=== PATIENT | female | born 1990 | race Caucasian/White ===

== ENCOUNTER 2020-01-27 12:48 | Day surgery (SDC) | payer OTHER ==
[~2020-01-27] VITALS: Ht 165.1 cm; Wt 52.8 kg
[~2020-01-27 12:48] MED LIST: ACET325 PO; ALBU90OI INH; AMOCLA500 PO; AMOX500 PO; BUPR75; Bactrim Ds Tab1 EACH PO; CEPH500 PO; CETYLOZ PO; CIPR500 PO; CITRANATAL B-C1 EACH PO; CLIN150 PO; CLON.1 PO; CODACE30 PO; CODGUAEL PO; Cleocin HCl150 MG PO; DIAZ5 PO; DOXY100 PO; FERR325 PO; HYDACE5 PO; HYDACE5325 PO; HYDHCL25 PO; HYDPAM50 PO; IBUP600 PO; MEDR150I IM; METO10 PO; MULVITMINE PO; MUPI2TO TOP; NICO21TP; NICORETTE4 MG BC; OXYACE5T PO; PHENA200 PO; PROM25; PROM25 PO; Pepcid20 MG PO; RANI150 PO; RXCODGUASY PO; RXHYD5325 PO; RXHYDACE PO; RXONDA4ODT MM; RXOXYACE PO; RXPROM25 PO; SULTRIDS PO; Vibramycin100 MG PO; Vistaril25 MG PO; [UNRECOGNIZED DRUG - OTHER]
[2020-01-27] MEDS ORDERED: PRENATAL TABLE1 EAC2 PO (13:47)
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
--- NOTE | 2020-01-27 15:41 | NUR ---
01/27/20 1541 Lauryn Prieto DC'D IN OR AT END OF CASE
== END 2020-01-27 17:19 | disposition home or self-care (01) ==
LOC: ORSCSDS 12:48
PROVIDERS: Obstetrics & Gynecology
PROC: 0UB14ZZ Excision of Left Ovary, Percutaneous Endoscopic Approach (ICD-10-PCS; principal; 2020-01-27 14:15)
DX: N83.202 Unspecified ovarian cyst, left side (principal); Z87.891 Personal history of nicotine dependence
CPT/HCPCS: 88305; J0171; J2250; J2704; J2710; J3010; J7120

== ENCOUNTER → 2020-04-14 | Outpatient (CLI) | payer OTHER ==
[~2020-04-14] MED LIST changes: +PRENATAL TABLE1 EAC2 PO
== END | disposition home or self-care (01) ==
LOC: LAB 16:17 → LAB SHORT 16:17
DX: R10.2 Pelvic and perineal pain (principal)
CPT/HCPCS: 87070; 87205

== ENCOUNTER → 2020-10-04 | Outpatient (CLI) | payer OTHER ==
[~2020-10-04] MED LIST changes: +IBUP800 PO
== END | disposition home or self-care (01) ==
LOC: LAB SHORT 10:30 → PLD 10:30
DX: J02.9 Acute pharyngitis, unspecified (principal)
CPT/HCPCS: 87081

== ENCOUNTER 2021-01-24 02:56 | Inpatient (IN) | payer OTHER ==
[~2021-01-24] VITALS: Ht 165.1 cm; Wt 63.2 kg
[~2021-01-24 02:56] MED LIST changes: -IBUP800 PO
[2021-01-24 03:32] LABS: BASOPHILS ABSOLUTE AUTO 0.06 K/mm3 (0.00-0.23); BASOPHILS PERCENT AUTO 1 % (0-2); EOSINOPHILS ABSOLUTE AUTO 0.01 K/mm3 (0.00-0.68); EOSINOPHILS PERCENT AUTO 0 % (0-6); Hematocrit 30.2 % (33.0-51.0); Hemoglobin 9.7 g/dL (11.5-16.0); IMMATURE GRAN ABSOLUTE AUTO 0.07 K/mm3 (0.00-0.10); IMMATURE GRAN PERCENT AUTO 1 % (0-1); LYMPHOCYTES ABSOLUTE AUTO 1.78 K/mm3 (0.84-5.20); LYMPHOCYTES PERCENT AUTO 15 % (21-46); MONOCYTES ABSOLUTE AUTO 0.86 K/mm3 (0.16-1.47); MONOCYTES PERCENT AUTO 7 % (4-13); Mean Corpuscular HGB 25.7 pg (26.0-34.0); Mean Corpuscular HGB Conc 32.1 g/dL (31.5-36.5); Mean Corpuscular Volume 80 fL (80-100); Mean Platelet Volume 11.7 fL (9.1-12.4); NEUTROPHILS ABSOLUTE AUTO 9.33 K/mm3 (1.96-9.15); NEUTROPHILS PERCENT AUTO 77 % (41-73); Platelet Count 274 K/mm3 (150-400); RDW Coefficient Variation 14.2 % (11.7-14.2); RDW Standard Deviation 40.7 fL (35.1-46.3); Red Blood Cell Count 3.78 M/mm3 (3.80-5.20); White Blood Cell Count 12.11 K/mm3 (4.00-11.30)
--- NOTE | 2021-01-24 03:51 | NUR ---
states she has bi-polar
[2021-01-24 03:53] LABS: U Amphetamine Screen DETECTED; U Barbituate Screen Not Detected; U Benzodiazapine Screen Not Detected; U Buprenorphine Screen Not Detected; U Cannabinoids Screen Not Detected; U Cocaine Screen Not Detected; U Methadone Screen Not Detected; U Methamphetamine Screen DETECTED; U Opiates Screen Not Detected; U Oxycodone Screen Not Detected; U Phencyclidine Screen Not Detected; U Propoxyphene Screen Not Detected
[2021-01-24 04:20] LABS: SARS-Cov-2 (COVID-19) PCR, MMC NEGATIVE (NEGATIVE)
--- NOTE | 2021-01-24 12:16 | NUR ---
PT UNABLE TO VOID AT 6HR POST DELIVERY, STRAIGHT CATH 250CC OF DARK YELLOW URINE. [facility] NOTIFIED.
--- NOTE | 2021-01-24 15:03 | NUR ---
PT STATES SHE IS, "PICKING REALLY BAD, IT'S STARTING TO GET OUT OF CONTROL AND I'M NOT SURE WHAT TO DO". DR. WHITE CALLED BY ELDA WARE AND NOTIFIED. ALSO NOTIFIED PER PT THAT SHE HAS TAKEN LORAZAPAM. NEW ORDERS RECEIVED BY ELDA WARE BY PROVIDER.
--- NOTE | 2021-01-24 17:24 | NUR ---
PT EDUCATED ON DIOR CARE AT HOME. NO SEX, NO POOLS, NO LEAL, NO TAMPONS. ANSWERED PT QUESTIONS AND CONCERNS.
--- NOTE | 2021-01-24 21:35 | NUR ---
Parents were in bed with baby with lights off, reminded parents when they start feeling sleepy,baby needs to be in crib.
[2021-01-25 05:53] LABS: BASOPHILS ABSOLUTE AUTO 0.05 K/mm3 (0.00-0.23); BASOPHILS PERCENT AUTO 1 % (0-2); EOSINOPHILS ABSOLUTE AUTO 0.06 K/mm3 (0.00-0.68); EOSINOPHILS PERCENT AUTO 1 % (0-6); Hematocrit 29.6 % (33.0-51.0); Hemoglobin 9.5 g/dL (11.5-16.0); IMMATURE GRAN ABSOLUTE AUTO 0.06 K/mm3 (0.00-0.10); IMMATURE GRAN PERCENT AUTO 1 % (0-1); LYMPHOCYTES ABSOLUTE AUTO 1.63 K/mm3 (0.84-5.20); LYMPHOCYTES PERCENT AUTO 17 % (21-46); MONOCYTES ABSOLUTE AUTO 0.77 K/mm3 (0.16-1.47); MONOCYTES PERCENT AUTO 8 % (4-13); Mean Corpuscular HGB Conc 32.1 g/dL (31.5-36.5); Mean Corpuscular Volume 81 fL (80-100); Mean Platelet Volume 11.8 fL (9.1-12.4); NEUTROPHILS ABSOLUTE AUTO 6.81 K/mm3 (1.96-9.15); NEUTROPHILS PERCENT AUTO 73 % (41-73); Platelet Count 214 K/mm3 (150-400); RDW Coefficient Variation 14.2 % (11.7-14.2); RDW Standard Deviation 41.5 fL (35.1-46.3); Red Blood Cell Count 3.65 M/mm3 (3.80-5.20); White Blood Cell Count 9.38 K/mm3 (4.00-11.30)
[2021-01-25] MEDS ORDERED: IBUP800 PO (08:41)
--- NOTE | 2021-01-25 16:36 | NUR ---
DISCHARGED WITH BABY UNDER THE SUPERVISION OF CPS AND A DESIGNATED SSP
--- NOTE | 2021-02-01 15:49 | NUR ---
LOCAL [facility] OFFICE CLOSED. UNABLE TO UPDATE CONFIGURATION MANAGEMENT ANALYST BRADLEY ALSTON. CALLED [employer] HOTLINE AND SPOKE WITH VAN. VAN TO LET BRADLEY KNOW THAT I CALLED TODAY TO STATE THAT DANTE VELASCO BROUGHT HER IN TO THE CLINIC TODAY FOR A TSB AND WEIGHT CHECK. GRANDMOTHER MORIS VELASCO NOT PRESENT AT THE APPT TODAY.
== END 2021-01-25 16:30 | disposition home or self-care (01) | DRG 807 ==
LOC: OBS 02:56 → BC 02:57 → OBS 03:10 → BC 03:11
PROVIDERS: ADMIT Obstetrics & Gynecology
PROC: 10E0XZZ Delivery of Products of Conception, External Approach (ICD-10-PCS; principal; 2021-01-24)
PROC: 3E0R3BZ Introduction of Anesthetic Agent into Spinal Canal, Percutaneous Approach (ICD-10-PCS; 2021-01-24)
PROC: 00HU33Z Insertion of Infusion Device into Spinal Canal, Percutaneous Approach (ICD-10-PCS; 2021-01-24)
PROC: 3E0234Z Introduction of Serum, Toxoid and Vaccine into Muscle, Percutaneous Approach (ICD-10-PCS; 2021-01-24)
DX: O60.14X0 Preterm labor third trimester with preterm delivery third trimester, not applicable or unspecified (principal); Z37.0 Single live birth; O99.334 Smoking (tobacco) complicating childbirth; O77.0 Labor and delivery complicated by meconium in amniotic fluid; Z20.822 Contact with and (suspected) exposure to COVID-19; F17.290 Nicotine dependence, other tobacco product, uncomplicated; Z88.2 Allergy status to sulfonamides; Z88.1 Allergy status to other antibiotic agents; Z88.8 Allergy status to other drugs, medicaments and biological substances; Z23 Encounter for immunization; Z3A.36 36 weeks gestation of pregnancy
CPT/HCPCS: 36415; 51701; 51702; 59025; 85025; 86850; 86900; 86901; 87081; 87150; A9270; G0480; J1885; J2001; J2590; J3010; J7120; U0004

== ENCOUNTER 2021-04-18 18:30 | Emergency (ER) | payer OTHER ==
[~2021-04-18] VITALS: Ht 165.1 cm; Wt 56.7 kg
[~2021-04-18 18:30] MED LIST changes: +IBUP800 PO
[2021-04-18 19:24] LABS: BASOPHILS ABSOLUTE AUTO 0.05 K/mm3 (0.00-0.23); BASOPHILS PERCENT AUTO 1 % (0-2); EOSINOPHILS ABSOLUTE AUTO 0.12 K/mm3 (0.00-0.68); EOSINOPHILS PERCENT AUTO 2 % (0-6); Hematocrit 37.7 % (33.0-51.0); Hemoglobin 12.2 g/dL (11.5-16.0); IMMATURE GRAN ABSOLUTE AUTO 0.02 K/mm3 (0.00-0.10); IMMATURE GRAN PERCENT AUTO 0 % (0-1); LYMPHOCYTES ABSOLUTE AUTO 2.07 K/mm3 (0.84-5.20); LYMPHOCYTES PERCENT AUTO 28 % (21-46); MONOCYTES ABSOLUTE AUTO 0.45 K/mm3 (0.16-1.47); MONOCYTES PERCENT AUTO 6 % (4-13); Mean Corpuscular HGB 27.5 pg (26.0-34.0); Mean Corpuscular HGB Conc 32.4 g/dL (31.5-36.5); Mean Corpuscular Volume 85 fL (80-100); Mean Platelet Volume 11.4 fL (9.1-12.4); NEUTROPHILS ABSOLUTE AUTO 4.58 K/mm3 (1.96-9.15); NEUTROPHILS PERCENT AUTO 63 % (41-73); Platelet Count 216 K/mm3 (150-400); RDW Coefficient Variation 18.6 % (11.7-14.2); RDW Standard Deviation 58.5 fL (35.1-46.3); Red Blood Cell Count 4.43 M/mm3 (3.80-5.20); White Blood Cell Count 7.29 K/mm3 (4.00-11.30)
[2021-04-18 19:33] LABS: Source, Urine Clean Catch
[2021-04-18 19:41] LABS: Appearance, Urine Clear (Clear); Bilirubin, Urine Neg (Neg); Blood, Urine Neg (Neg); Color, Urine Yellow (P-Yellow); Glucose Qualitative, Urine Neg (Neg); Ketones, Urine Neg (Neg); Leukocyte Esterase, Urine 1+ (Neg); Nitrite, Urine Neg (Neg); Protein, Urine Neg (Neg); Urobilinogen, Urine NORM (Normal)
[2021-04-18 19:41] LABS: Alanine Aminotransfer (ALT/SGP 35 U/L (12-78); Albumin, Blood 4.2 g/dL (3.4-5.0); Albumin/Globulin Ratio 1.2 (0.8-1.8); Alk Phos 44 U/L (50-136); Anion Gap 10 mmol/L (6-16); Aspartate Aminotrans (AST/SGOT 19 U/L (12-37); Bilirubin, Total 0.3 mg/dL (0.1-1.0); Blood Urea Nitrogen 9 mg/dL (8-24); Bun/Creatinine Ratio 14.2 (12.0-20.0); CO2, Blood 27 mmol/L (21-32); Calcium, Blood 8.9 mg/dL (8.5-10.1); Chloride, Blood 104 mmol/L (98-108); Creatinine, Blood 0.63 mg/dL (0.40-1.00); Globulin, Blood 3.4 g/dL (2.2-4.0); Glomerular Filtration Rate >60 (60-); Glucose, Blood 88 mg/dL (70-99); Potassium, Blood 3.7 mmol/L (3.5-5.5); Sodium, Blood 141 mmol/L (136-145); Total Protein, Blood 7.6 g/dL (6.4-8.2)
[2021-04-18 19:50] LABS: Bacteria Rare /hpf; Red Blood Cells, Urine 0-2 /hpf (0-2); Squamous Epithelial Cells Few /hpf (Few)
== END 2021-04-18 21:29 | disposition home or self-care (01) ==
LOC: ER 18:30
PROVIDERS: Physician Assistant
DX: N83.02 Follicular cyst of left ovary (principal); Z88.2 Allergy status to sulfonamides; Z88.8 Allergy status to other drugs, medicaments and biological substances
CPT/HCPCS: 36415; 76856; 80053; 81001; 81025; 83690; 85025; 87086; 99284-25

== ENCOUNTER → 2021-06-28 | Outpatient (CLI) | payer OTHER | LOC: LAB SHORT 09:44 → LAB 09:44 | DX: B34.9 Viral infection, unspecified (principal) | CPT/HCPCS: 87081 ==

== ENCOUNTER → 2022-02-11 | Outpatient (CLI) | payer OTHER | END | disposition home or self-care (01) | LOC: LAB SHORT 13:50 → LAB 13:50 | DX: L02.92 Furuncle, unspecified (principal) | CPT/HCPCS: 87070; 87075; 87077; 87147; 87186; 87205 ==

== ENCOUNTER 2022-03-10 17:31 | Emergency (ER) | payer OTHER ==
[~2022-03-10] VITALS: Ht 165.1 cm; Wt 56.7 kg
[2022-03-10 19:42] LABS: Source, Urine Clean Catch
[2022-03-10 20:08] LABS: Bilirubin, Urine Neg (Neg); Blood, Urine 1+ (Neg); Glucose Qualitative, Urine Neg (Neg); Ketones, Urine Neg (Neg); Leukocyte Esterase, Urine Neg (Neg); Nitrite, Urine Neg (Neg); Protein, Urine Neg (Neg); Urobilinogen, Urine NORM (Normal)
[2022-03-10 20:31] LABS: Appearance, Urine Clear (Clear); Color, Urine Yellow (P-Yellow)
[2022-03-10 20:33] LABS: Bacteria Rare /hpf; Red Blood Cells, Urine 0-2 /hpf (0-2); Squamous Epithelial Cells Few /hpf (Few); White Blood Cells, Urine 0-2 /hpf (0-5)
[2022-03-10] MEDS ORDERED: VRAYLAR1.5 MG PO (22:05)
[2022-03-10] MEDS ORDERED: GYNE LOTRIMIN VAG (23:31)
== END 2022-03-10 23:40 | disposition home or self-care (01) ==
LOC: ER 17:31
PROVIDERS: Physician Assistant
DX: O20.9 Hemorrhage in early pregnancy, unspecified (principal); O98.811 Other maternal infectious and parasitic diseases complicating pregnancy, first trimester; B37.3 Candidiasis of vulva and vagina; Z3A.13 13 weeks gestation of pregnancy; Z88.8 Allergy status to other drugs, medicaments and biological substances
CPT/HCPCS: 76801; 81001; 84702; 86900; 86901; 99284-25; A9270

== ENCOUNTER 2023-07-09 08:37 | Emergency (ER) | payer OTHER ==
[~2023-07-09] VITALS: Ht 165.1 cm; Wt 54.4 kg
[~2023-07-09 08:37] MED LIST changes: +GYNE LOTRIMIN VAG; +VRAYLAR1.5 MG PO
[2023-07-09] MEDS ORDERED: Amoxicillin500 MG PO (09:00)
[2023-07-09] MEDS ORDERED: LORAZEPAM0.5 MG PO (09:00)
[2023-07-09 10:11] VITALS: BP 107/62
[2023-07-09 10:16] LABS: BASOPHILS ABSOLUTE AUTO 0.06 K/mm3 (0.00-0.23); BASOPHILS PERCENT AUTO 1 % (0-2); EOSINOPHILS ABSOLUTE AUTO 0.12 K/mm3 (0.00-0.68); EOSINOPHILS PERCENT AUTO 2 % (0-6); Hematocrit 37.3 % (33.0-51.0); Hemoglobin 12.4 g/dL (11.5-16.0); IMMATURE GRAN ABSOLUTE AUTO 0.01 K/mm3 (0.00-0.10); IMMATURE GRAN PERCENT AUTO 0 % (0-1); LYMPHOCYTES ABSOLUTE AUTO 1.44 K/mm3 (0.84-5.20); LYMPHOCYTES PERCENT AUTO 26 % (21-46); MONOCYTES ABSOLUTE AUTO 0.26 K/mm3 (0.16-1.47); MONOCYTES PERCENT AUTO 5 % (4-13); Mean Corpuscular HGB 29.7 pg (26.0-34.0); Mean Corpuscular HGB Conc 33.2 g/dL (31.5-36.5); Mean Corpuscular Volume 89 fL (80-100); Mean Platelet Volume 11.9 fL (9.1-12.4); NEUTROPHILS ABSOLUTE AUTO 3.57 K/mm3 (1.96-9.15); NEUTROPHILS PERCENT AUTO 65 % (41-73); Platelet Count 184 K/mm3 (150-400); RDW Coefficient Variation 13.2 % (11.7-14.2); Red Blood Cell Count 4.18 M/mm3 (3.80-5.20); White Blood Cell Count 5.46 K/mm3 (4.00-11.30)
[2023-07-09 10:42] LABS: Albumin, Blood 3.9 g/dL (3.4-5.0); Albumin/Globulin Ratio 1.2 (0.8-1.8); Bilirubin, Total 0.4 mg/dL (0.1-1.0); Bun/Creatinine Ratio 22.2 (12.0-20.0); Calcium, Blood 8.6 mg/dL (8.5-10.1); Creatinine, Blood 0.5 mg/dL (0.40-1.00); Globulin, Blood 3.3 g/dL (2.2-4.0); Potassium, Blood 3.9 mmol/L (3.5-5.5); Total Protein, Blood 7.2 g/dL (6.4-8.2)
== END 2023-07-09 11:20 | disposition home or self-care (01) ==
LOC: ER 08:37
PROVIDERS: Emergency Medicine
DX: R42 Dizziness and giddiness (principal); N93.9 Abnormal uterine and vaginal bleeding, unspecified; Z88.8 Allergy status to other drugs, medicaments and biological substances; Z87.891 Personal history of nicotine dependence
CPT/HCPCS: 80053; 84703; 85025; 93005; 93010; 96360; 99284-25; J7030

== ENCOUNTER 2023-08-08 12:15 | Emergency (ER) | payer OTHER ==
[~2023-08-08] VITALS: Ht 165.1 cm; Wt 52.2 kg
[~2023-08-08 12:15] MED LIST changes: +Amoxicillin500 MG PO; +LORAZEPAM0.5 MG PO
[2023-08-08 13:23] LABS: Source, Urine Clean Catch
[2023-08-08 13:31] LABS: Appearance, Urine Clear (Clear); Bilirubin, Urine Neg (Neg); Blood, Urine Neg (Neg); Color, Urine Yellow (P-Yellow); Glucose Qualitative, Urine Neg (Neg); Ketones, Urine Neg (Neg); Leukocyte Esterase, Urine Neg (Neg); Nitrite, Urine Neg (Neg); Protein, Urine Neg (Neg); Urobilinogen, Urine NORM (Normal)
[2023-08-08 13:32] LABS: BASOPHILS ABSOLUTE AUTO 0.04 K/mm3 (0.00-0.23); BASOPHILS PERCENT AUTO 1 % (0-2); EOSINOPHILS ABSOLUTE AUTO 0.18 K/mm3 (0.00-0.68); EOSINOPHILS PERCENT AUTO 3 % (0-6); Hematocrit 36.3 % (33.0-51.0); Hemoglobin 11.8 g/dL (11.5-16.0); IMMATURE GRAN ABSOLUTE AUTO 0.04 K/mm3 (0.00-0.10); IMMATURE GRAN PERCENT AUTO 1 % (0-1); LYMPHOCYTES ABSOLUTE AUTO 1.23 K/mm3 (0.84-5.20); LYMPHOCYTES PERCENT AUTO 21 % (21-46); MONOCYTES ABSOLUTE AUTO 0.39 K/mm3 (0.16-1.47); MONOCYTES PERCENT AUTO 7 % (4-13); Mean Corpuscular HGB 29.8 pg (26.0-34.0); Mean Corpuscular HGB Conc 32.5 g/dL (31.5-36.5); Mean Corpuscular Volume 92 fL (80-100); Mean Platelet Volume 11.9 fL (9.1-12.4); NEUTROPHILS ABSOLUTE AUTO 3.93 K/mm3 (1.96-9.15); NEUTROPHILS PERCENT AUTO 68 % (41-73); Platelet Count 183 K/mm3 (150-400); RDW Coefficient Variation 13.7 % (11.7-14.2); RDW Standard Deviation 46.1 fL (35.1-46.3); Red Blood Cell Count 3.96 M/mm3 (3.80-5.20); White Blood Cell Count 5.81 K/mm3 (4.00-11.30)
[2023-08-08 13:55] LABS: Albumin, Blood 3.3 g/dL (3.4-5.0); Bilirubin, Total 0.2 mg/dL (0.1-1.0); Bun/Creatinine Ratio 21.1 (12.0-20.0); Calcium, Blood 9.1 mg/dL (8.5-10.1); Creatinine, Blood 0.43 mg/dL (0.40-1.00); Globulin, Blood 3.3 g/dL (2.2-4.0); Total Protein, Blood 6.6 g/dL (6.4-8.2)
[2023-08-08 15:26] VITALS: BP 131/85
[2023-08-08 17:54] LABS: Adenovirus Not Detected (NOT DETECT); Bordetella pertussis Not Detected (NOT DETECT); Chlamydophila pneumoniae Not Detected (NOT DETECT); Coronavirus 229E Not Detected (NOT DETECT); Coronavirus HKU1 Not Detected (NOT DETECT); Coronavirus NL63 Not Detected (NOT DETECT); Coronavirus OC43 Not Detected (NOT DETECT); Human Metapneumovirus Not Detected (NOT DETECT); Human Rhinovirus/Enterovirus Not Detected (NOT DETECT); Influenza A/2009-H1 Not Detected (NOT DETECT); Influenza A/H1 Not Detected (NOT DETECT); Influenza A/H3 Not Detected (NOT DETECT); Influenza B Not Detected (NOT DETECT); Mycoplasma pneumoniae Not Detected (NOT DETECT); Parainfluenza Virus 1 Not Detected (NOT DETECT); Parainfluenza Virus 2 Not Detected (NOT DETECT); Parainfluenza Virus 3 Not Detected (NOT DETECT); Parainfluenza Virus 4 Not Detected (NOT DETECT); Respiratory Syncytial Virus Not Detected (NOT DETECT); SARS-Cov-2 (COVID-19), BioFire Not Detected (NOT DETECT)
[2023-08-08] MEDS ORDERED: DOXY100 PO (19:10)
[2023-08-08] MEDS ORDERED: CEPH500 PO (19:10)
== END 2023-08-08 19:20 | disposition home or self-care (01) ==
LOC: ER 12:15
PROVIDERS: Student in an Organized Health Care Education/Training Program
DX: R21 Rash and other nonspecific skin eruption (principal); B95.8 Unspecified staphylococcus as the cause of diseases classified elsewhere; J45.909 Unspecified asthma, uncomplicated; Z20.822 Contact with and (suspected) exposure to COVID-19; Z88.2 Allergy status to sulfonamides; Z88.1 Allergy status to other antibiotic agents; Z88.8 Allergy status to other drugs, medicaments and biological substances; Z87.891 Personal history of nicotine dependence
CPT/HCPCS: 0202U; 36415; 71046; 76882; 80053; 81003; 81025; 83605; 85025; 87040; 87081; 87430; 93005; 93010; 99284-25; A9270

== ENCOUNTER 2024-04-25 06:36 | Day surgery (SDC) | payer OTHER ==
[2024-04-25] VITALS (16 sets, daily range): BP systolic 101–128; BP diastolic 54–84
[~2024-04-25] VITALS: Ht 165.1 cm; Wt 54.2 kg
[~2024-04-25 06:36] MED LIST changes: +ALPR.5 PO; +Adderall Xr 1515 MG PO; +Dexamethasone Sod Phos 10 MG/ML 1ML VIAL IV ONE; +FentaNYL Citrate 50 MCG/ML 5 ML Injection IV ONE; +Ondansetron HCl 2 MG / ML 2ML Vial IV ONE; +Rocuronium Bromide 10 MG/ML 5ML Injection IV ONE; +Sugammadex Sodium 200 MG/2ML SDV (100 MG/ML) IV ONE; +propofoL 20 ML IV ONE
[2024-04-25] MEDS ORDERED: CeFAZolin Sodium 2,000 MG in NS 100 ML IV SCH ×2 (06:45→14:00)
[2024-04-25] MEDS ORDERED: Lactated Ringer's 1,000 ML IV SCH ×2 (06:45→10:40)
--- NOTE | 2024-04-25 07:06 | NUR ---
Ambulatory in Day Surgery History, Chart, Medications and Allergies reviewed before start of procedure. Pre-Op teaching done. Pt verbalizes understanding.
[2024-04-25] MEDS ORDERED: Bupivacaine 0.5% HCl 5 MG/ML 30MLVIAL ONE (07:51)
[2024-04-25] MEDS ORDERED: Rocuronium Bromide 10 MG/ML 5ML Injection IV ONE (09:52)
[2024-04-25] MEDS ORDERED: ALPRAZolam 0.5 MG Tab PO PRN (10:25)
[2024-04-25] MEDS ORDERED: FentaNYL Citrate 50 MCG/ML 2 ML Injection ONE (10:34)
[2024-04-25] MEDS ORDERED: Ondansetron HCl 2 MG / ML 2ML Vial IV PRN (10:35)
[2024-04-25] MEDS ORDERED: Naloxone HCl 0.4MG / ML 1ML Vial IV PRN (10:35)
[2024-04-25] MEDS ORDERED: Simethicone 80 MG Chew PO PRN (10:35)
[2024-04-25] MEDS ORDERED: FLU VACC TS2024-25(6MOS UP)/PF 45 MCG/0.5 ML SYRINGE IM SCH (10:40)
[2024-04-25] MEDS ORDERED: Promethazine HCl 12.5 MG Supp PR PRN (10:40)
[2024-04-25] MEDS ORDERED: Promethazine HCl 25 MG Tab PO PRN (10:40)
[2024-04-25] MEDS ORDERED: OxyCODONE 5 mg/Acetamin 325 mg TABLET PO PRN (10:40)
[2024-04-25] MEDS ORDERED: Ondansetron 4 MG TAB PO PRN (10:40)
[2024-04-25] MEDS ORDERED: HYDROmorphone HCl/Pf 1MG SYR IV PRN (10:40)
[2024-04-25] MEDS ORDERED: Ketorolac Tromethamine 30mg Vial IV PRN (10:50)
--- NOTE | 2024-04-25 11:22 | NUR ---
PT ARRIVED TO ROOM VIA GURNEY. SLID ONTO HOSPITAL BED WITH SLIDER SHEET. SLEEPY BUT AROUSABLE TO VOICE. VSS. NO COMPLAINTS OF PAIN AT THIS TIME. LAP SITES X4 C/D/I, COVERED WITH WOUND GLUE. CATHETER DRAINING LIGHT YELLOW URINE. HEAT PACK IN PLACE, BED IN LOWEST POSITION, CALL LIGHT WITHIN REACH.
[2024-04-25] MEDS ORDERED: HYDROcodone 5-APAP 325 TAB PO PRN (14:10)
--- NOTE | 2024-04-25 18:05 | NUR ---
Shift Summary POD 0 Total Lap Hyster. Lap sites x4 C/D/I, without drainage and closed with wound glue. Minimal blood spotting on pad. VSS. Pleasent mood. Eating/Drinking/Voiding w/out issues. Pain managed per emar.
[2024-04-25] MEDS ORDERED: Doxycycline Hyclate 100 MG TAB PO SCH (21:00)
[2024-04-26 03:59] VITALS: BP 98/66
--- NOTE | 2024-04-26 05:38 | NUR ---
SHIFT SUMMARY PT A&O X4. VSS; ALTHOUGH SBP SOFT THIS AM. NO ACUTE EVENTS OVERNIGHT. REMAINS ON RA. PT WITH PAIN 4-6/10, WELL MANAGED WITH TORADOL AND NORCO PER EMAR. AFTER ADMINISTRATION, PAIN DECREASING TO 2-3/10. PT DID COMPLAIN OF "AIR OR GAS PAIN"; MEDICATION PER EMAR. PT ENCOURAGED TO AMBULATE AND TO TRY LYING ON SIDE. PT REPORTS THIS HELPED AND PT ABLE TO REST. TOLERATING PO INTAKE. VOIDING WITHOUT DIFFICULTY, GOOD OUTPUT. SCANT AMOUNT OF BLEEDING. PT UP AMBULATING IN ROOM AND TO RESTROOM, SBA FOR SAFETY. BINDER IN PLACE TO ABDOMENT. ABLE TO MAKE NEEDS KNOWN, CALL LIGHT IN REACH. WILL UPDATE ONCOMING RN. ABX COMPLETED PER EMAR. PT REFUSED AM LABS.
[2024-04-26 07:47] VITALS: BP 113/85
[2024-04-26] MEDS ORDERED: VRAYLAR 1.5 MG PO SCH (09:00)
[2024-04-26] MEDS ORDERED: Estradiol 1 MG Tab PO SCH (09:00)
[2024-04-26] MEDS ORDERED: HYDR1TAB94 PO (11:00)
[2024-04-26] MEDS ORDERED: ESTR2 PO (11:00)
[2024-04-26] MEDS ORDERED: SIME80CH PO (11:01)
[2024-04-26] MEDS ORDERED: PROM25 PO (11:01)
[2024-04-26] MEDS ORDERED: DOCU100 PO (11:02)
--- NOTE | 2024-04-26 11:44 | NUR ---
DISCHARGE: PT WALKING, VOIDING, PAIN MANAGED. DC PACKET PRINTED AND PT EDUCATED. LEFT UNIT VIA WHEELCHAIR AT 1130 WITH UNDERWRITING ASSISTANT HANNAH
== END 2024-04-26 11:33 | disposition home or self-care (01) ==
LOC: ORSCMMR 06:36 → ORD 08:00 → SURS 11:12 → ORD 13:15 → ORSCMMR 04-26 11:33
PROVIDERS: Obstetrics & Gynecology
PROC: 0UT6FZZ Resection of Left Fallopian Tube, Via Natural or Artificial Opening With Percutaneous Endoscopic Assistance (ICD-10-PCS; principal; 2024-04-25 08:00)
PROC: 0UT2FZZ Resection of Bilateral Ovaries, Via Natural or Artificial Opening With Percutaneous Endoscopic Assistance (ICD-10-PCS; principal; 2024-04-25 08:00)
PROC: 0UT9FZZ Resection of Uterus, Via Natural or Artificial Opening With Percutaneous Endoscopic Assistance (ICD-10-PCS; principal; 2024-04-25 08:00)
PROC: 0U5F4ZZ Destruction of Cul-de-sac, Percutaneous Endoscopic Approach (ICD-10-PCS; principal; 2024-04-25 08:00)
DX: D06.0 Carcinoma in situ of endocervix (principal); N92.1 Excessive and frequent menstruation with irregular cycle; N83.12 Corpus luteum cyst of left ovary; N94.12 Deep dyspareunia; N94.6 Dysmenorrhea, unspecified; R10.2 Pelvic and perineal pain; R87.610 Atypical squamous cells of undetermined significance on cytologic smear of cervix (ASC-US); D50.9 Iron deficiency anemia, unspecified; Z87.891 Personal history of nicotine dependence; Z79.899 Other long term (current) drug therapy
CPT/HCPCS: 86850; 86900; 86901; 88307; 94760; A9270; J0690; J1100; J1170; J1885; J2405; J2704; J3010; J7120